=== PATIENT | female | born 1970 | race Caucasian/White ===

== ENCOUNTER 2023-08-19 19:45 | Outpatient (REF) | payer OTHER, SELFPAY ==
[2023-08-26 21:07] LABS: Age Gdln ACOG Testing Note (.); HPV Aptima Positive (Negative); HPV Genotype 16 Negative (Negative); HPV Genotype 18,45 Negative (Negative); IGP, Aptima HPV, rfx 16/18,45 Note (.)
== END 2023-08-19 19:46 | disposition home or self-care (01) ==
LOC: LAB 19:45
PROVIDERS: Visit Provider Physician Assistant
DX: Z01.419 Encounter for gynecological examination (general) (routine) without abnormal findings (principal)
CPT/HCPCS: 87624; 87625; G0145

== ENCOUNTER 2023-09-02 10:50 | Outpatient (OUT) | payer OTHER, SELFPAY ==
--- NOTE | 2023-09-02 10:56 | MM_ITS ---
Patient Name: STEPH BOBBY MR#: [id number] : 1970 Exam Date: 09/02/2023 Ordering Doctor: DALI Camacho . RADIOLOGY REPORT PROCEDURE: MM TOMOSYNTHESIS SCREENING BI COMPARISON: MG MAMM CHRISTINE SCRN W CAD DIG, 06/06/2015. MG MAMM SCREEN 3D CHRISTINE CAD, 07/17/2021. INDICATIONS: screening Z12.31 Calculator Name NCI Breast Cancer Risk Assessment Tool 5 Year Breast Cancer Risk 1.20% Lifetime Breast Cancer Risk 10.60% Personal Breast Cancer No Personal Ovarian Cancer No Treatments None Family Cancers Aunt-paternal with breast cancer at age ~40; Aunt-paternal with mandibular cancer at age ~40. LOCATION: [facility] BREAST COMPOSITION: Heterogeneously dense,which may obscure small masses. FINDINGS: DIAGNOSTIC CATEGORY 2--BENIGN FINDING. NO CHANGE FROM COMPARISON. Scattered benign-appearing nodules are present. Scattered benign-appearing calcifications are present. Scattered benign-appearing lymph nodes are present. RIGHT BREAST: No significant suspicious finding. LEFT BREAST: No significant suspicious finding. Area of architectural distortion upper inner quadrant, stable from prior exam in 2020 RECOMMENDATIONS: ROUTINE MAMMOGRAM AND CLINICAL EVALUATION IN 12 MONTHS. PLEASE NOTE: A NORMAL MAMMOGRAM DOES NOT EXCLUDE THE POSSIBILITY OF BREAST CANCER. A CLINICALLY SUSPICIOUS PALPABLE LUMP SHOULD BE BIOPSIED. Dictated by: Fish Henriquez MD on 09/03/2023 at 11:20 Approved by: Fish Henriquez MD on 09/03/2023 at 11:24
--- NOTE | 2023-09-02 10:57 | XR_ITS ---
The [address] [address] Patient Name: STEPH BOBBY MRN: [id number] date: 1970 Sex: F Assigned Patient Location: [facility] Current Patient Location: [facility] Accession/Order Number: [id number] Exam Date: 09/02/2023 11:20 Report Date: 09/02/2023 12:40 At the request of: XIAO RDZ Procedure: XR DEXA axial skeleton DEXA Bone Density Study INDICATION: Postmenopausal state. Evaluate bone mineral density. COMPARISON:No prior DEXA scan available for comparison at the time of this dictation. FINDINGS: The bone density study was assessed by dual-energy x-ray absorptiometry with the Traka scanner. The test results are expressed in T-Score, which is used for diagnosis for osteoporosis, and reflects the standard deviations from the mean peak bone mineral density in young adults. Additional information regarding the Z-Score reflects the standard deviations from the mean peak bone mineral density for age- and gender- matched subject. Lumbar Spine (L2-L4): BMD (gm/cm2): 1.187 T-Score: -0.1 Left Hip TOTAL: BMD (gm/cm2): 1.029 T-Score: 0.2 Left Hip NECK: BMD (gm/cm2): 0.983 T-Score: -0.4 Right hip TOTAL: BMD (gm/cm2):1.019 T- score:0.1 Right hip NECK: BMD (gm/cm2):0.904 T- score: -1.0 XR/XR DEXA axial skeleton IMPRESSION: Bone mineral density WHO Classification: Normal REFERENCE: In children, postmenopausal women and males under age 50 not at increased risk for fractures, only Z-Scores, not T-Scores, are used to indicate fracture risk. A Z-Score above -2.0 is defined as within the expected range for age and Z-Score at or less than -2.0 is below the expected range for age. A Z-Score below the expected range for age in a patient with recent fractures and/or chronic corticosteroid treatment is consistent with a diagnosis of osteoporosis. In postmenopausal women and males over 50, comparison of the measured bone mineral density with the average value in young normal subjects (the T-Score) has been found to be useful in assessing fracture risk. Fracture risk approximately doubles for each 1.0 standard deviation (SD) that the individuals hip or spine bone mineral density is below the average value of young normal subjects. The World Health Organization (WHO) has provided the following definitions: 1. Normal: T-Score within one standard deviation of young adult mean value (T-Score at or above -1.0). 2. Osteopenia (low bone mass): T-Score more than one standard deviation below the young adult mean but less than 2.5 standard deviations below the young adult mean (T-Score between -1.0 and -2.5). 3. Osteoporosis: T-Score at or more than 2.5 standard deviations below the young adult mean (T-Score at or less than -2.5). 4. Severe Osteoporosis (established osteoporosis): T-Score more than 2.5 standard deviations below young adult and one or more fragility fracture (T-Score less than -2.5 plus fragility fractures). Electronically authenticated by: GILBERTO VELASQUEZ Date: 09/02/2023 12:40
== END 2023-09-02 10:51 | disposition home or self-care (01) ==
LOC: MAMMO 10:50
PROVIDERS: PCP Family Medicine; Visit Provider Physician Assistant
DX: Z12.31 Encounter for screening mammogram for malignant neoplasm of breast (principal); Z78.0 Asymptomatic menopausal state; Z80.8 Family history of malignant neoplasm of other organs or systems
CPT/HCPCS: 77063; 77067; 77080

== ENCOUNTER 2024-09-21 19:40 | Outpatient (REF) | payer BC, SELFPAY ==
[2024-09-24 12:08] LABS: Age Gdln ACOG Testing Note (.); HPV Aptima Negative (Negative); IGP, Aptima HPV, rfx 16/18,45 Note (.)
== END 2024-09-21 19:41 | disposition home or self-care (01) ==
LOC: LAB 19:40
PROVIDERS: PCP Family Medicine; Visit Provider Obstetrics & Gynecology
DX: Z01.419 Encounter for gynecological examination (general) (routine) without abnormal findings (principal)
CPT/HCPCS: 87624; 88175